=== PATIENT | female | born 1945 | race Caucasian/White ===

== ENCOUNTER → 2024-03-14 | Outpatient (CLI) | payer MEDICARE ==
[~2024-03-14] MED LIST: AMLO10 PO; ATOR10 PO; Aspir 8181 MG PO; CARV6.25 PO; ESCI10 PO; LOSA50 PO; PANT40 PO
[2024-03-18 18:43] LABS: CALPROTECTIN,FECAL 209 ug/g (<=49)
== END ==
LOC: LAB SHORT 09:30 → LAB 09:30
PROVIDERS: Physician Assistant Medical
DX: K50.119 Crohn's disease of large intestine with unspecified complications (principal)
CPT/HCPCS: 83993

== ENCOUNTER 2024-03-18 11:12 | Day surgery (SDC) | payer MEDICARE ==
[~2024-03-18] VITALS: Ht 165.1 cm; Wt 64.7 kg
[~2024-03-18 11:12] MED LIST changes: -AMLO10 PO; -ATOR10 PO; -Aspir 8181 MG PO; -CARV6.25 PO; -ESCI10 PO; -LOSA50 PO; +Lactated Ringer's 1,000 ML IV ONE; -PANT40 PO
[2024-03-18] MEDS ORDERED: LOSA50 PO (11:42)
[2024-03-18] MEDS ORDERED: CARV6.25 PO (11:50)
[2024-03-18] MEDS ORDERED: ATOR10 PO (11:51)
[2024-03-18] MEDS ORDERED: PANT40 PO (11:51)
[2024-03-18] MEDS ORDERED: AMLO10 PO (11:51)
[2024-03-18] MEDS ORDERED: Aspir 8181 MG PO (11:51)
[2024-03-18] MEDS ORDERED: ESCI10 PO (11:52)
[2024-03-18] MEDS ORDERED: Lactated Ringer's 1,000 ML IV ONE (12:07)
--- NOTE | 2024-03-18 12:13 | NUR ---
03/18/24 1213 Domitila Cantor SON NASIM AND KATE WITH PT IN ROOM. CALL LIGHT WITHIN REACH. BED IN LOWEST POSITION. PT WARM ENOUGH. NO QUESTIONS OR CONCERNS AT THIS TIME.
[2024-03-18] MEDS ORDERED: propofoL 50 ML IV ONE (12:52)
--- NOTE | 2024-03-18 13:40 | NUR ---
03/18/24 1340 KB MCCARTY IV/FLUIDS DC IN 1337
== END 2024-03-18 13:55 | disposition home or self-care (01) ==
LOC: ORSCSDS 11:12
PROVIDERS: Internal Medicine Gastroenterology
PROC: 0DBB8ZX Excision of Ileum, Via Natural or Artificial Opening Endoscopic, Diagnostic (ICD-10-PCS; principal; 2024-03-18 12:45)
DX: K50.90 Crohn's disease, unspecified, without complications (principal); K56.699 Other intestinal obstruction unspecified as to partial versus complete obstruction; K52.9 Noninfective gastroenteritis and colitis, unspecified; I10 Essential (primary) hypertension; E78.5 Hyperlipidemia, unspecified; K25.9 Gastric ulcer, unspecified as acute or chronic, without hemorrhage or perforation; Z79.899 Other long term (current) drug therapy
CPT/HCPCS: 88305; J2704; J7120

== ENCOUNTER → 2025-01-15 | Outpatient (CLI) | payer MEDICARE ==
[~2025-01-15] MED LIST changes: +AMLO10 PO; +ATOR10 PO; +Aspir 8181 MG PO; +CARV6.25 PO; +ESCI10 PO; +LOSA50 PO; -Lactated Ringer's 1,000 ML IV ONE; +PANT40 PO
== END ==
LOC: LAB 12:45 → LAB SHORT 12:45
DX: N39.0 Urinary tract infection, site not specified (principal)
CPT/HCPCS: 87077; 87086; 87186